=== PATIENT | female | born 2005 | race Two or more races ===

== ENCOUNTER 2025-03-02 23:58 | Inpatient (IN) ==
[2025-03-03] MEDS: KETOROLAC 30 MG/ML VIAL IV STA (00:41)
[2025-03-03] MEDS: SODIUM CHLORIDE 0.9% 1,000 ML IV ONE ×2 (00:41→03:44)
[2025-03-03] MEDS: ACETAMINOPHEN 1,000 MG/100 ML VIAL IV STA (00:41)
[2025-03-03 01:03] LABS: Basophils # (auto) 0.03 K/uL (0.00-0.20); Basophils % (auto) 0.5 %; Eosinophils # (auto) 0.01 K/uL (0.00-0.50); Eosinophils % (auto) 0.2 %; Hematocrit (blood only) 44.7 % (37.0-47.0); Hemoglobin 15.3 g/dl (12.0-16.0); Immature Granulocytes # (auto) 0.03 K/uL (0.01-0.20); Immature Granulocytes % (auto) 0.5 %; Lymphocytes # (auto) 0.96 K/uL (1.20-3.40); Lymphocytes % (auto) 16.2 %; Mean Corpuscular Hemoglobin 28.3 pg (25.0-34.0); Mean Corpuscular Hgb Conc 34.2 g/dL (32.0-36.0); Mean Corpuscular Volume 82.8 fL (80.0-100.0); Mean Platelet Volume 9.4 fL (9.4-12.4); Monocytes # (auto) 0.36 K/uL (0.11-0.59); Monocytes % (auto) 6.1 %; Neutrophils # (auto) 4.54 K/uL (1.40-6.50); Neutrophils % (auto) 76.5 %; Platelet Count 241 K/uL (130-400); RDW Coefficient of Variation 12.4 % (11.5-14.5); RDW Standard Deviation 37.7 fL (36.4-46.3); White Blood Count 5.93 K/ul (4.8-10.8)
[2025-03-03 01:17] LABS: Appearance Urine Clear (Clear); Bacteria Urine Automated 1+ (None Seen); Bilirubin Urine Negative (Negative); Blood Urine Trace (Negative); Cast Urine Automated 0-2 /lpf (0-2); Color Urine Yellow; Glucose Urine UA Negative (Negative); Ketones Urine 1+ (Negative); Leukocyte Esterase Urine 2+ (Negative); Nitrite Urine Negative (Negative); Protein Urine 1+ (Negative); Specific Gravity Urine 1.024 (1.000-1.030); Urobilinogen Urine Negative (Negative); WBC Urine Automated 21-50 /hpf (0-5)
[2025-03-03 01:20] LABS: Albumin Globulin Ratio 1.4 (0.9-2); Albumin Level 5.1 gm/dl (3.4-5.0); BUN Creatinine Ratio 14.3 (10-20); Bilirubin,Total 0.5 mg/dl (0.2-1.0); Calcium 9.9 mg/dl (8.6-10.3); Creatinine Clr Calc Pharmacy 101.4 ml/min; Globulin 3.6 gm/dl (2.5-4.0); Potassium 3.6 mmol/L (3.5-5.1); Total Protein 8.7 gm/dl (6.0-8.3)
[2025-03-03 01:24] LABS: Pregnancy Test, Serum Negative (Negative)
[2025-03-03] MEDS: OPTIRAY 320 100ml IV ONE (01:28)
--- NOTE | 2025-03-03 02:59 | CT Scan Report ---
EXAM: CT abd pelvis IV con only CLINICAL HISTORY: right flank pain, fever TECHNIQUE: Contiguous axial images were obtained from the level of the diaphragm to the pubic symphysis with intravenous contrast. Coronal and sagittal reconstructions were likewise performed and indicated to increase the sensitivity for detecting clinically relevant pathology. If IV contrast material had not been administered, the likelihood of detecting abnormalities relevant to the patient's condition would have been substantially decreased. CT scan was performed according to ALARA (as low as reasonable achievable). COMPARISON: None FINDINGS: The visualized lung bases are clear. The liver is normal in size and attenuation. No focal liver lesions are seen. There is no intra or extrahepatic biliary ductal dilatation. Hepatic vasculature is patent. The gallbladder is present. The spleen, pancreas, and adrenal glands are unremarkable. The kidneys are normal in size and attenuation. There is no hydronephrosis or perinephric fat stranding. Approximately 19 x 15 mm size poorly enhancing hypodense lesion measuring about 19 x 15 mm is noted involving interpolar cortex of right kidney with subtle adjacent fat stranding - suggest possibility of developing abscess. The ureters are normal in caliber and no ureteral calculi are seen. The bladder is normal in contour. Pelvic viscera are unremarkable. No focal or diffuse bowel wall thickening or evidence of bowel obstruction is identified. The appendix is visualized in the right lower quadrant and appears within normal limits. Abdominal and pelvic vasculature is patent. No adenopathy or fluid collections are seen. No aggressive appearing osseous lesions are identified. IMPRESSION: Approximately 19 x 15 mm size poorly enhancing hypodense lesion measuring about 19 x 15 mm is noted involving interpolar cortex of right kidney with subtle adjacent fat stranding - suggest possibility of developing abscess. Electronically signed by Andrae Rodriguez 03-03-2025 02:59 AM
[2025-03-03] MEDS ORDERED: VANCOMYCIN CONSULT ACTIVE PRN ×2 (03:08→05:35)
--- NOTE | 2025-03-03 03:25 | Emergency Department Note ---
History of Present Illness General Chief complaint: Flank Pain Stated complaint: FEVER,FLANK PAIN Time Seen by Provider: 03/03/25 00:04 History of Present Illness Maximum Pain Intensity: 0 This is a 19-year-old female presenting to the emergency department for evaluation of right flank pain worsening over the past 3 to 4 days. Patient has fever and urinary frequency. She does not have history of kidney stones. She has been taking Tylenol with some improvement of symptoms. She denies chance of . No history of abdominal surgery. No chest pain, chest tightness, or shortness of breath. She does not identify aggravating or alleviating factors. Pain is constant, not colicky, and does not seem to radiate. Home Medications Medication Instructions Recorded Confirmed Type acetaminophen 500 mg tablet 500 mg PO Q6H PRN PAIN/FEVER 03/03/25 03/03/25 History Allergies Allergy/AdvReac Type Severity Reaction Status Date / Time No Known Allergies Allergy Verified 03/03/25 00:41 Past Med/Surg History Problem List (Updated 03/03/25 @ 05:45 by Tomas Meyer PA-C) Renal abscess, right (Acute) Pyelonephritis (Acute) No significant past medical history Surgical History No history of previous surgery Social History Smoking Status: Never smoker Preferred Language: Guyanese Feels Safe at Home: Yes Review of Systems A total of 10 systems reviewed and were otherwise negative Physical Exam Vital Signs Vital Signs - 24 hr 03/03/25 00:01 03/03/25 00:35 03/03/25 01:01 Temperature 38.5 C H Temperature Source Oral Pulse Rate 147 H 113 H Pulse Rate [Apical] 125 H Pulse Rate from SpO2 Sensor Pulse Rhythm [Apical] Regular Respiratory Rate 18 19 Respiratory Effort / Characteristics Non-Labored Spontaneous Non-Labored Spontaneous Respiratory Depth Normal Normal Respiratory Pattern Regular Regular Blood Pressure 120/90 Blood Pressure [Left Arm] 107/78 Blood Pressure Mean 100 Blood Pressure Mean [Left Arm] 87 Blood Pressure Position Sitting Pulse Oximetry 99 97 Oxygen Delivery Method Room Air Room Air Sepsis Recent Fever Within 48 Hours Yes Sepsis New/Unexplained Change in Mental Status N/A Sepsis Action Taken by Nursing No Action Required 03/03/25 01:35 03/03/25 01:42 03/03/25 02:00 Temperature Temperature Source Pulse Rate 89 89 Pulse Rate [Apical] 85 Pulse Rate from SpO2 Sensor 90 90 Pulse Rhythm [Apical] Regular Respiratory Rate 17 16 15 Respiratory Effort / Characteristics Non-Labored Spontaneous Respiratory Depth Normal Respiratory Pattern Regular Blood Pressure 99/62 L Blood Pressure [Left Arm] 92/59 L Blood Pressure Mean 67 Blood Pressure Mean [Left Arm] 70 Blood Pressure Position Pulse Oximetry 98 98 96 Oxygen Delivery Method Room Air Room Air Room Air Sepsis Recent Fever Within 48 Hours Sepsis New/Unexplained Change in Mental Status Sepsis Action Taken by Nursing 03/03/25 02:06 03/03/25 02:30 03/03/25 02:45 Temperature Temperature Source Pulse Rate 74 71 Pulse Rate [Apical] 95 H Pulse Rate from SpO2 Sensor 73 71 Pulse Rhythm [Apical] Regular Respiratory Rate 18 17 17 Respiratory Effort / Characteristics Non-Labored Spontaneous Respiratory Depth Normal Respiratory Pattern Regular Blood Pressure 87/53 L 86/61 L Blood Pressure [Left Arm] 93/61 L Blood Pressure Mean 64 69 Blood Pressure Mean [Left Arm] 71 Blood Pressure Position Pulse Oximetry 98 96 96 Oxygen Delivery Method Room Air Room Air Room Air Sepsis Recent Fever Within 48 Hours Sepsis New/Unexplained Change in Mental Status Sepsis Action Taken by Nursing 03/03/25 03:00 03/03/25 03:30 Temperature Temperature Source Pulse Rate 70 68 Pulse Rate [Apical] Pulse Rate from SpO2 Sensor 70 Pulse Rhythm [Apical] Respiratory Rate 16 16 Respiratory Effort / Characteristics Respiratory Depth Respiratory Pattern Blood Pressure 93/59 L 92/55 L Blood Pressure [Left Arm] Blood Pressure Mean 69 67 Blood Pressure Mean [Left Arm] Blood Pressure Position Pulse Oximetry 96 99 Oxygen Delivery Method Room Air Room Air Sepsis Recent Fever Within 48 Hours Sepsis New/Unexplained Change in Mental Status Sepsis Action Taken by Nursing VITALS: Vitals are noted on the nurse's note and reviewed by myself. Vital signs with fever and tachycardia GENERAL: Well-developed, well-nourished, white female who appears ill but not toxic. NECK: Supple without nuchal rigidity. No lymphadenopathy. No thyromegaly. Cervical spine is nontender. HEART: Tachycardic rate with regular rhythm LUNGS: Clear to auscultation bilaterally without wheezes, rales or rhonchi. No retractions or accessory muscle use. ABDOMEN: Positive normal bowel sounds x 4. Soft, nontender, without masses or organomegaly. No guarding or rebound tenderness. Positive right CVA tenderness. MUSCULOSKELETAL: No muscle atrophy, erythema, or edema noted. Full range of motion in all extremities. No tenderness to palpation. Normal gait. Strength 5/5 throughout. NEURO: Patient was alert and oriented to person place and time. CN II through XII grossly intact. Course Administered Medications Vancomycin HCl 1,000 mg/ (Sodium Chloride) 520 mls @ 200 mls/hr IV NOW ONE Stop: 03/03/25 05:43 Last Admin: 03/03/25 04:45 Dose: 200 mls/hr Documented By: YONATAN Discontinued Medications Sodium Chloride (Nss) 1,000 mls @ 999 mls/hr IV .Q1H1M ONE Stop: 03/03/25 01:13 Last Infusion: 03/03/25 01:25 Dose: Infused Documented By: Admin: 03/03/25 00:41 Dose: 999 mls/hr Documented By: YONATAN Acetaminophen (Ofirmev) 1,000 mg in 100 mls @ 400 mls/hr IV NOW STA Stop: 03/03/25 00:27 Last Infusion: 03/03/25 01:00 Dose: Infused Documented By: Admin: 03/03/25 00:41 Dose: 400 mls/hr Documented By: YONATAN Piperacillin Sod/Tazobactam Sod (Zosyn) 4.5 gm in 100 mls @ 200 mls/hr IV NOW ONE; Protocol Stop: 03/03/25 03:37 Last Infusion: 03/03/25 04:42 Dose: Infused Documented By: Admin: 03/03/25 04:12 Dose: 200 mls/hr Documented By: YONATAN Sodium Chloride (Nss) 1,000 mls @ 999 mls/hr IV .Q1H1M ONE Stop: 03/03/25 04:10 Last Admin: 03/03/25 03:44 Dose: 999 mls/hr Documented By: YONATAN Ioversol (Optiray 320 100ml) 100 ml IV ONCE ONE Stop: 03/03/25 01:29 Last Admin: 03/03/25 01:28 Dose: 93 ml Documented By: LAYLA Ketorolac Tromethamine (Ketorolac 30 Mg/Ml Vial) 30 mg IV NOW STA Stop: 03/03/25 00:14 Last Admin: 03/03/25 00:41 Dose: 30 mg Documented By: YONATAN Medical Decision Making Differential Diagnosis Differential diagnosis: Etiologies such as shingles, pyelonephritis/UTI, renal colic, appendicitis, diverticulitis, mesenteric ischemia, torsion, aortic pathology, infections, inflammatory bowel disease, bowel obstruction, PUD, biliary pathology, as well as others were entertained. Laboratory Data 03/03/25 00:15 03/03/25 00:15 Lab Results 03/03/25 03/03/25 03/03/25 Range/Units 00:15 00:40 03:43 WBC 5.93 (4.8-10.8) K/ul RBC 5.40 (4.20-5.40) M/uL Hgb 15.3 (12.0-16.0) g/dl Hct 44.7 (37.0-47.0) % MCV 82.8 (80.0-100.0) fL MCH 28.3 (25.0-34.0) pg MCHC 34.2 (32.0-36.0) g/dL RDW Std Deviation 37.7 (36.4-46.3) fL RDW Coeff of Camilo 12.4 (11.5-14.5) % Plt Count 241 (130-400) K/uL MPV 9.4 (9.4-12.4) fL Immature Gran % (Auto) 0.5 % Neut % (Auto) 76.5 % Lymph % (Auto) 16.2 % Valley % (Auto) 6.1 % Eos % (Auto) 0.2 % Baso % (Auto) 0.5 % Neut # (Auto) 4.54 (1.40-6.50) K/uL Lymph # (Auto) 0.96 L (1.20-3.40) K/uL Valley # (Auto) 0.36 (0.11-0.59) K/uL Eos # (Auto) 0.01 (0.00-0.50) K/uL Baso # (Auto) 0.03 (0.00-0.20) K/uL Immature Gran # (Auto) 0.03 (0.01-0.20) K/uL ESR 37 H (0-20) mm/hr Sodium 135 L (136-145) mmol/L Potassium 3.6 (3.5-5.1) mmol/L Chloride 99 (98-107) mmol/L Carbon Dioxide 28 (21-32) mmol/L Anion Gap 8 (3-11) BUN 10 (6-23) mg/dl Creatinine 0.70 (0.6-1.2) mg/dl Est Cr Clr Drug Dosing 101.4 ml/min eGFR 126.90 BUN/Creatinine Ratio 14.3 (10-20) Glucose 105 H (70-99(Fasting)) mg/dl Lactate 0.6 (0.4-2.0) mmol/L Calcium 9.9 (8.6-10.3) mg/dl Total Bilirubin 0.5 (0.2-1.0) mg/dl AST 19 (13-39) U/L ALT 11 (7-52) U/L Alkaline Phosphatase 52 (34-104) U/L C-Reactive Protein 6.55 H (0-0.5) mg/dl Total Protein 8.7 H (6.0-8.3) gm/dl Albumin 5.1 H (3.4-5.0) gm/dl Globulin 3.6 (2.5-4.0) gm/dl Albumin/Globulin Ratio 1.4 (0.9-2) Lipase 6 L (11-82) U/L HCG, Qual Negative (Negative) Urine Color Yellow Urine Appearance Clear (Clear) Urine pH 6.0 (4.5-7.5) Ur Specific [place] 1.024 (1.000-1.030) Urine Protein 1+ H (Negative) Urine Glucose (UA) Negative (Negative) Urine Ketones 1+ H (Negative) Urine Blood Trace H (Negative) Urine Nitrite Negative (Negative) Urine Bilirubin Negative (Negative) Urine Urobilinogen Negative (Negative) Ur Leukocyte Esterase 2+ H (Negative) Urine WBC (Auto) 21-50 H (0-5) /hpf Urine RBC (Auto) 3-5 H (0-2) /hpf U Hyaline Cast (Auto) 0-2 (0-2) /lpf U Epithel Cells (Auto) 3-5 H (0-2) /hpf Urine Bacteria (Auto) 1+ H (None Seen) Imaging Data Radiologist's Impression: Abdomen/Pelvis CT 03/03/25 00:13 EXAM: CT abd pelvis IV con only CLINICAL HISTORY: right flank pain, fever TECHNIQUE: Contiguous axial images were obtained from the level of the diaphragm to the pubic symphysis with intravenous contrast. Coronal and sagittal reconstructions were likewise performed and indicated to increase the sensitivity for detecting clinically relevant pathology. If IV contrast material had not been administered, the likelihood of detecting abnormalities relevant to the patient's condition would have been substantially decreased. CT scan was performed according to ALARA (as low as reasonable achievable). COMPARISON: None FINDINGS: The visualized lung bases are clear. The liver is normal in size and attenuation. No focal liver lesions are seen. There is no intra or extrahepatic biliary ductal dilatation. Hepatic vasculature is patent. The gallbladder is present. The spleen, pancreas, and adrenal glands are unremarkable. The kidneys are normal in size and attenuation. There is no hydronephrosis or perinephric fat stranding. Approximately 19 x 15 mm size poorly enhancing hypodense lesion measuring about 19 x 15 mm is noted involving interpolar cortex of right kidney with subtle adjacent fat stranding - suggest possibility of developing abscess. The ureters are normal in caliber and no ureteral calculi are seen. The bladder is normal in contour. Pelvic viscera are unremarkable. No focal or diffuse bowel wall thickening or evidence of bowel obstruction is identified. The appendix is visualized in the right lower quadrant and appears within normal limits. Abdominal and pelvic vasculature is patent. No adenopathy or fluid collections are seen. No aggressive appearing osseous lesions are identified. IMPRESSION: Approximately 19 x 15 mm size poorly enhancing hypodense lesion measuring about 19 x 15 mm is noted involving interpolar cortex of right kidney with subtle adjacent fat stranding - suggest possibility of developing abscess. Electronically signed by Andrae Rodriguez 03-03-2025 02:59 AM MDM Narrative Physical exam and history were performed. Nursing notes, EMR, and Medication List were personally reviewed. No social concerns were identified as barriers to patients care. History was provided by the Patient. Patient appears to have right flank pain bringing her to the ER. She is febrile on arrival. IV access was established and labs were obtained. Patient was hydrated normal saline and given IV Toradol and IV Tylenol for comfort. She was sent to CT scan for imaging of her abdomen and pelvis. Patient's blood work is as above and was reviewed. She does not have a significant elevated white blood cell count, gross anemia, bandemia, or significant electrolyte imbalance. Lipase and transaminases are not diagnostic. She is not . Urine is with blood, esterase, and bacteria with culture pending. CT scan was reviewed by myself and radiology. CT scan is concerning for a right-sided pyelonephritis as well as the possibility of an evolving renal abscess. This would correlate with her symptoms. Escalation of care was considered, and is felt to be necessary for this patient. She was started on IV vancomycin and IV Zosyn here in the ER. Blood cultures and lactic were gathered. She was given additional IV fluids to complete her sepsis fluid bolus. Case was discussed with my attending physician, Dr. Figueredo. Case was also discussed with the on-call hospitalist team, who agreed to evaluate the patient here in the ER. Please see their dictation for further patient course, plan, and disposition. The chart was completed utilizing [employer] Speech Voice Recognition Software. Grammatical errors, random word insertions, pronoun errors, and incomplete sentences are an occasional consequence of this system due to software limitations, ambient noise, and hardware issues. Any formal questions or concerns about the content, text, or information contained within the body of this dictation should be directly addressed to the provider for clarification. Impression & Plan Pyelonephritis, Renal abscess, right Discharge Plan Visit Data Chief Complaint: Flank Pain Stated Complaint: FEVER,FLANK PAIN ED Provider: Angela Figueredo ED Midlevel Provider: Tomas Meyer Discharge Problem: Pyelonephritis, Renal abscess, right Patient Disposition: Admitted As Inpatient Discharge Instructions Interventions: ED Discharge Assessment Last Done: 03/03/25 05:14
--- NOTE | 2025-03-03 03:43 | History & Physical Report ---
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 She does not have any history of renal calculi or UTI. Patient has tried to utilize Tylenol to help alleviate the pain with minimal imp rovement. ED evaluation reveals no leukocytosis, stable H&H; CMP sodium 135, glucose 105, protein 8.7, albumin 5.1; lipase 6; UA positive for infection; CTAP reveals approximately 19 x 17 mm size poorly enhancing hypodense lesion involving interpolar cortex R kidney with subtle adjacent fat stranding suggesting possibility of a developing abscess.; Provided with vancomycin, Zosyn, ketorolac, acetaminophen, and 2L NSS in ED. #Pyelonephritis/Abscess Worsening R flank pain with associated fever and urinary frequency x 5 days CORE MAN. ? abscess forming. - CBC without leukocytosis; CMP grossly WNL creatinine 0.7 and BUN 10 - CBC, BMP am - ESR, CRP pending - trend to gauge response to treatment - U/A positive for infection; pending urine culture - CTAP fat stranding suggesting possibility of developing abscess (19 x 17 mm hypodense lesion involving interpolar cortex R kidney) - NSS @ 80 mL/hr - Acetaminophen prn fever/ pain, Ketorolac prn pain (severe) - Zofran prn N/V - Vancomycin q12h + Zosyn q8h IV - deescalate antibiotics as appropriate - Nephrology consulted - appreciate assistance + recs Dispo: Admit, med/sx VTE prophylaxis: Encourage ambulation - consider chemical if prolonged stay This document was dictated utilizing [employer]. Please excuse any grammatical errors that may be secondary to use of this software. 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 Patient has been experiencing flank pain on her right side with associated fever that has continued to worsen over the past 2 days CORE MAN. Describes it as a sharp pain that comes and goes, sometimes radiating to her abdomen but mainly in the flank area on the R side. She does not have any history of renal calculi or UTI. States that she had an episode like this occur "1 year ago" and that it resolved on its own. Did have a "severe fever" 1 day CORE MAN. Patient has tried to utilize cranberry juisce and Tylenol to help alleviate the symptoms with minimal improvement. Previously experienced dysuria, but not currently. ED evaluation reveals no leukocytosis, stable H&H; CMP sodium 135, glucose 105, protein 8.7, albumin 5.1; lipase 6; UA positive for infection; CTAP reveals approximately 19 x 17 mm size poorly enhancing hypodense lesion involving interpolar cortex R kidney with subtle adjacent fat stranding suggesting possibility of a developing abscess.; Provided with vancomycin, Zosyn, ketorolac, acetaminophen, and 2L NSS in ED. Please see Dr. Navarro's attestation for adjustments/additions to treatment plan. Allergies Allergy/AdvReac Type Severity Reaction Status Date / Time No Known Allergies Allergy Verified 03/03/25 00:41 Home Medications Medication Instructions Recorded Confirmed Type acetaminophen 500 mg tablet 500 mg PO Q6H PRN PAIN/FEVER 03/03/25 03/03/25 History Past Med/Surg History Problem List Renal abscess, right (Acute) Pyelonephritis (Acute) No significant past medical history Surgical History No history of previous surgery Social History Smoking Status: Never smoker Second Hand Exposure: No; Do You Dip or Chew Tobacco: No; Tobacco Cessation Education Requested by Patient: No Hx Alcohol Use: No Hx Substance Use: No Preferred Language: Kinyarwanda Communication Ability: Effective 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 Other Information That Helps Us Care for You: No Feels Safe at Home: Yes Safety Concerns: Feels Safe At This Time Assistive Devices: None Review of Systems Review of Systems: All systems reviewed & are unremarkable except as noted in Subjective Physical Exam Physical Exam: General: No acute distress, resting comfortably in bed Skin: Warm and dry Head: Normocephalic, atraumatic Eyes: PERRL, conjunctivae clear, sclera non-icteric ENT: External ear and ear canal without swelling; nose atraumatic; good dentition, tongue normal appearance, pharynx normal Neck: Supple, no LAD Cardio: RRR, no M/G/R, S1 and S2 normal Resp: No respiratory distress, Lungs CTA in all lobes bilaterally, no wheezes, rales, or rhonchi Abdomen: Soft, symmetric, nontender; No masses or hepatosplenomegaly; Bowel sounds normoactive; mild CVA tenderness R side, no CVA tenderness L side MSK: No deformities; pulses palpable and equal; no edema. Neuro: Awake, alert; Sensation intact bilaterally; CN grossly intact Psych: Appropriate mood and affect; good judgement and insight. Results & Data Results & Data Vital Signs (Past 12 Hours) Vital Signs Temp Pulse Pulse Resp BP BP Pulse Ox 03/03/25 02:06 95 H 18 93/61 L 98 03/03/25 02:00 85 15 92/59 L 96 03/03/25 01:42 89 16 98 03/03/25 01:35 89 17 99/62 L 98 03/03/25 01:01 113 H 03/03/25 00:35 125 H 19 107/78 97 03/03/25 00:01 38.5 C H 147 H 18 120/90 99 O2 Del Method 03/03/25 02:06 Room Air 03/03/25 02:00 Room Air 03/03/25 01:42 Room Air 03/03/25 01:35 Room Air 03/03/25 01:01 03/03/25 00:35 Room Air 03/03/25 00:01 Room Air Laboratory Results 03/03/25 00:40 Urine Culture - Pending Urine,Clean Catch 03/03/25 03/03/25 00:40 00:15 WBC 5.93 RBC 5.40 Hgb 15.3 Hct 44.7 MCV 82.8 MCH 28.3 MCHC 34.2 RDW Std Deviation 37.7 RDW Coeff of Camilo 12.4 Plt Count 241 MPV 9.4 Immature Gran % (Auto) 0.5 Neut % (Auto) 76.5 Lymph % (Auto) 16.2 [place] % (Auto) 6.1 Eos % (Auto) 0.2 Baso % (Auto) 0.5 Neut # (Auto) 4.54 Lymph # (Auto) 0.96 L [place] # (Auto) 0.36 Eos # (Auto) 0.01 Baso # (Auto) 0.03 Immature Gran # (Auto) 0.03 Sodium 135 L Potassium 3.6 Chloride 99 Carbon Dioxide 28 Anion Gap 8 BUN 10 Creatinine 0.70 Est Cr Clr Drug Dosing 101.4 eGFR 126.90 BUN/Creatinine Ratio 14.3 Glucose 105 H Calcium 9.9 Total Bilirubin 0.5 AST 19 ALT 11 Alkaline Phosphatase 52 Total Protein 8.7 H Albumin 5.1 H Globulin 3.6 Albumin/Globulin Ratio 1.4 Lipase 6 L HCG, Qual Negative Urine Color Yellow Urine Appearance Clear Urine pH 6.0 Ur Specific [place] 1.024 Urine Protein 1+ H Urine Glucose (UA) Negative Urine Ketones 1+ H Urine Blood Trace H Urine Nitrite Negative Urine Bilirubin Negative Urine Urobilinogen Negative Ur Leukocyte Esterase 2+ H Urine WBC (Auto) 21-50 H Urine RBC (Auto) 3-5 H U Hyaline Cast (Auto) 0-2 U Epithel Cells (Auto) 3-5 H Urine Bacteria (Auto) 1+ H Diagnostic Findings Abdomen/Pelvis CT 03/03/25 00:13 EXAM: CT abd pelvis IV con only CLINICAL HISTORY: right flank pain, fever TECHNIQUE: Contiguous axial images were obtained from the level of the diaphragm to the pubic symphysis with intravenous contrast. Coronal and sagittal reconstructions were likewise performed and indicated to increase the sensitivity for detecting clinically relevant pathology. If IV contrast material had not been administered, the likelihood of detecting abnormalities relevant to the patient's condition would have been substantially decreased. CT scan was performed according to ALARA (as low as reasonable achievable). COMPARISON: None FINDINGS: The visualized lung bases are clear. The liver is normal in size and attenuation. No focal liver lesions are seen. There is no intra or extrahepatic biliary ductal dilatation. Hepatic vasculature is patent. The gallbladder is present. The spleen, pancreas, and adrenal glands are unremarkable. The kidneys are normal in size and attenuation. There is no hydronephrosis or perinephric fat stranding. Approximately 19 x 15 mm size poorly enhancing hypodense lesion measuring about 19 x 15 mm is noted involving interpolar cortex of right kidney with subtle adjacent fat stranding - suggest possibility of developing abscess. The ureters are normal in caliber and no ureteral calculi are seen. The bladder is normal in contour. Pelvic viscera are unremarkable. No focal or diffuse bowel wall thickening or evidence of bowel obstruction is identified. The appendix is visualized in the right lower quadrant and appears within normal limits. Abdominal and pelvic vasculature is patent. No adenopathy or fluid collections are seen. No aggressive appearing osseous lesions are identified. IMPRESSION: Approximately 19 x 15 mm size poorly enhancing hypodense lesion measuring about 19 x 15 mm is noted involving interpolar cortex of right kidney with subtle adjacent fat stranding - suggest possibility of developing abscess. Electronically signed by Andrae Rodriguez 03-03-2025 02:59 AM Medications Administered 2L NSS Zosyn 4.5 g IV Vancomycin 1 g IV Ketorolac 30 Mg IV Acetaminophen 1 g IV Code Status & VTE Plan Code Status Full Supervising Physician Co-Signing Physician Notes Patient seen and examined in room 358-1, chart reviewed, case discussed with BEULAH Johnson and I agree with the assessment and plan as above Patient with pyelonephritis, concern for developing perinephric abscess Exam is unremarkable. Non-toxic IV antibiotics, fluids, supportive care Remainder as above PG Care Time/CCT Total # of Minutes Spent Total Time Spent with Patient: Total time spent is greater than 50% in coordination of care (as documented) at patient's floor/unit and/or counseling patient: Coding Level of Care Code 46297 INT INP/OBS CARE 2MIN Diagnoses Pyelonephritis N12 Renal abscess, right N15.1
[2025-03-03] MEDS ORDERED: KETOROLAC TROMETHAMINE 15 MG/ML VIAL IV PRN ×2 (04:03→13:59)
[2025-03-03] MEDS: PIPERACILLIN/TAZOBACTAM 4.5 GM/100 ML BAG IV ONE (04:12)
[2025-03-03 04:40] LABS: C Reactive Protein 6.55 mg/dl (0-0.5)
[2025-03-03] MEDS: VANCOMYCIN HCL 1,000 MG in SODIUM CHLORIDE 0.9% 500 ML IV ONE (04:45)
[2025-03-03] MEDS: SODIUM CHLORIDE 0.9% 1,000 ML IV SCH (04:55)
[2025-03-03] MEDS ORDERED: MELATONIN 3 MG TAB PO PRN (05:35)
[2025-03-03] MEDS ORDERED: ONDANSETRON INJ 2 MG/ML 2 ML VIAL IV PRN (05:35)
[2025-03-03] MEDS ORDERED: POLYETHYLENE (MIRALAX) 17 GM PACK PO PRN (05:35)
--- NOTE | 2025-03-03 07:35 | Pharmacy Report ---
Pharmacy PK ABX Note - Date of Service March 03, 2025 - Assessment and Plan Assessment 19 year old F receiving IV Vancomycin + Zosyn for treatment of possible pyelonephritis, questionable abscess forming. CBC without leukocytosis; fever 38.5 on admission, UA positive, awaiting urine + blood cultures. Day 1 of antimicrobial therapy. Plan Vancomycin * Loading dose: 1000 mg IV x 1 in ED * Maintenance dose: 1500 mg IV every 12 hours * Regimen is predicted to achieve target AUC/DEBORAH of 400-600 mg/L.hr * Random level ordered for: 03/05/25 with AM labs Zosyn 4.5g IV over 30 minutes then 4.5g IV Q8H extended interval infusion. Pharmacy will continue to follow and will adjust dose/frequency as necessary. Thank you. Pharmacy has transitioned to AUC monitoring for vancomycin. AUC/DEBORAH is the preferred PK/PD target and is associated with decreased risk of nephrotoxicity compared to traditional trough targets.
[2025-03-03] MEDS: LACTATED RINGER'S 1,000 ML IV SCH (08:59)
[2025-03-03] MEDS: LACTATED RINGER'S 500 ML IV ONE (09:15)
[2025-03-03] MEDS: PLASMA-LYTE A 500 ML IV ONE (09:22)
[2025-03-03] MEDS: VANCOMYCIN HCL 1,500 MG in SODIUM CHLORIDE 0.9% 500 ML IV SCH (09:31)
[2025-03-03] MEDS: PLASMA-LYTE A 1,000 ML IV SCH (09:31)
--- NOTE | 2025-03-03 10:43 | Nephrology Consultation ---
Date of Consultation March 03, 2025 Assessment & Plan (1) Pyelonephritis: Started on antibiotic therapy with Vancomycin and Zosyn. Cultures pending. Clinically improving. (2) Renal abscess, right: Creatinine stable. CT reviewed. No emergent indication for intervention/drainage . If concern arises, I would advise consultation with IR/urology. Continue broad spectrum antibiotics. IVF to encourage urine output. 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 She was experiencing fevers or chills as well as headaches prior to arrival. She reports significant improvement this AM. Jennifer was resting comfortably in bed this AM. She continues to endorse some right flank discomfort. She denies significant urinary symptoms. She has never required antibiotic therapy for UTI in the past. She has no history of kidney disease. Evaluation demonstrated evidence of pyelonephritis. CT demonstrating a 20 mm focus concerning for abscess in the right kidney. Creatinine normal. Cultures pending. She has been started on antibiotic therapy with vancomycin and Zosyn. 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 Other Information That Helps Us Care for You: No Feels Safe at Home: Yes Safety Concerns: Feels Safe At This Time Assistive Devices: Contacts and Glasses Review of Systems Review of Systems: All systems reviewed & are unremarkable except as noted in HPI & below Physical Exam Constitutional: well developed; no acute distress Eyes: no scleral abnormality and no corneal abnormality ENMT: Mouth: no oral mucosal abnormality and oral mucous membranes not dry Neck: normal visual inspection and trachea midline Respiratory: normal respiratory effort Auscultation: lungs clear to auscultation bilaterally Cardiovascular: Rate/Rhythm: regular rate Heart Sounds: normal S1 and normal S2 Extremities: no edema Gastrointestinal (Abdomen): Inspection/Auscultation: abdomen normal to inspection; abdomen not distended Percussion/Palpation: abdomen soft; abdomen nontender Musculoskeletal: Extremities: no cyanosis and no clubbing Skin: normal turgor; no lesions Neurologic: Motor/Sensory: no tremor and no asterixis Psychiatric: Orientation: alert and oriented x 3 Genitourinary: + CVA tenderness (R) Results & Data Vital Signs (Past 12 Hours) Vital Signs Temp Pulse Pulse Pulse Resp BP BP 03/03/25 07:34 90/50 L 03/03/25 07:22 36.4 C L 73 14 79/53 L 03/03/25 05:44 36.5 C 73 16 94/65 L 03/03/25 05:43 36.5 C 73 16 94/65 L 03/03/25 05:14 68 16 94/55 L 03/03/25 04:44 66 03/03/25 04:19 82 16 111/68 03/03/25 04:15 72 17 111/68 03/03/25 04:00 70 16 92/55 L 03/03/25 03:30 68 16 92/55 L 03/03/25 03:00 70 16 93/59 L 03/03/25 02:45 71 17 86/61 L 03/03/25 02:30 74 17 87/53 L 03/03/25 02:06 95 H 18 93/61 L 03/03/25 02:00 85 15 92/59 L 03/03/25 01:42 89 16 03/03/25 01:35 89 17 99/62 L 03/03/25 01:01 113 H 03/03/25 00:35 125 H 19 107/78 03/03/25 00:01 38.5 C H 147 H 18 120/90 Pulse Ox O2 Del Method 03/03/25 07:34 03/03/25 07:22 98 Room Air 03/03/25 05:44 98 Room Air 03/03/25 05:43 98 Room Air 03/03/25 05:14 99 Room Air 03/03/25 04:44 03/03/25 04:19 99 Room Air 03/03/25 04:15 98 Room Air 03/03/25 04:00 99 Room Air 03/03/25 03:30 99 Room Air 03/03/25 03:00 96 Room Air 03/03/25 02:45 96 Room Air 03/03/25 02:30 96 Room Air 03/03/25 02:06 98 Room Air 03/03/25 02:00 96 Room Air 03/03/25 01:42 98 Room Air 03/03/25 01:35 98 Room Air 03/03/25 01:01 03/03/25 00:35 97 Room Air 03/03/25 00:01 99 Room Air Laboratory Results Laboratory Results - last 24 hr 03/03/25 03/03/25 03/03/25 00:15 00:40 03:43 WBC 5.93 RBC 5.40 Hgb 15.3 Hct 44.7 MCV 82.8 MCH 28.3 MCHC 34.2 RDW Std Deviation 37.7 RDW Coeff of [place] 12.4 Plt Count 241 MPV 9.4 Immature Gran % (Auto) 0.5 Neut % (Auto) 76.5 Lymph % (Auto) 16.2 [place] % (Auto) 6.1 Eos % (Auto) 0.2 Baso % (Auto) 0.5 Neut # (Auto) 4.54 Lymph # (Auto) 0.96 L [place] # (Auto) 0.36 Eos # (Auto) 0.01 Baso # (Auto) 0.03 Immature Gran # (Auto) 0.03 ESR 37 H Sodium 135 L Potassium 3.6 Chloride 99 Carbon Dioxide 28 Anion Gap 8 BUN 10 Creatinine 0.70 Est Cr Clr Drug Dosing 101.4 eGFR 126.90 BUN/Creatinine Ratio 14.3 Glucose 105 H Lactate 0.6 Calcium 9.9 Total Bilirubin 0.5 AST 19 ALT 11 Alkaline Phosphatase 52 C-Reactive Protein 6.55 H Total Protein 8.7 H Albumin 5.1 H Globulin 3.6 Albumin/Globulin Ratio 1.4 Lipase 6 L HCG, Qual Negative Urine Color Yellow Urine Appearance Clear Urine pH 6.0 Ur Specific [place] 1.024 Urine Protein 1+ H Urine Glucose (UA) Negative Urine Ketones 1+ H Urine Blood Trace H Urine Nitrite Negative Urine Bilirubin Negative Urine Urobilinogen Negative Ur Leukocyte Esterase 2+ H Urine WBC (Auto) 21-50 H Urine RBC (Auto) 3-5 H U Hyaline Cast (Auto) 0-2 U Epithel Cells (Auto) 3-5 H Urine Bacteria (Auto) 1+ H Diagnostic Findings CT abd pelvis IV con only COMPARISON: None FINDINGS: The visualized lung bases are clear. The liver is normal in size and attenuation. No focal liver lesions are seen. There is no intra or extrahepatic biliary ductal dilatation. Hepatic vasculature is patent. The gallbladder is present. The spleen, pancreas, and adrenal glands are unremarkable. The kidneys are normal in size and attenuation. There is no hydronephrosis or perinephric fat stranding. Approximately 19 x 15 mm size poorly enhancing hypodense lesion measuring about 19 x 15 mm is noted involving interpolar cortex of right kidney with subtle adjacent fat stranding - suggest possibility of developing abscess. The ureters are normal in caliber and no ureteral calculi are seen. The bladder is normal in contour. Pelvic viscera are unremarkable. No focal or diffuse bowel wall thickening or evidence of bowel obstruction is identified. The appendix is visualized in the right lower quadrant and appears within normal limits. Abdominal and pelvic vasculature is patent. No adenopathy or fluid collections are seen. No aggressive appearing osseous lesions are identified. IMPRESSION: Approximately 19 x 15 mm size poorly enhancing hypodense lesion measuring about 19 x 15 mm is noted involving interpolar cortex of right kidney with subtle adjacent fat stranding - suggest possibility of developing abscess. PG Care Time/CCT Total # of Minutes Spent Total Time Spent with Patient: Total time spent is greater than 50% in coordination of care (as documented) at patient's floor/unit and/or counseling patient: Coding Level of Care Code 92944 IN/OBS CONSULT LVL 4,60M Diagnoses Pyelonephritis N12 Renal abscess, right N15.1
--- NOTE | 2025-03-03 10:53 | Hospitalist Progress Note ---
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 She does not have any history of renal calculi or UTI. Admitted for pyelo/renal abscess Pyelonephritis/renal abscess - p/w with right flank pain, urinary frequency, and fever No leukocytosis, hypotensive overnight. Received a little over 2 L of fluids. 56kg body weight - Tmax 38.5*F overnight On morning assessment clinically she feels improved and has no symptoms of hypotension. Blood pressures have been running low 90s/5060s. Her cap refill in fingertips is brisk, and she is not tachycardic. Does not show perfusion deficits at this time and is with MAP greater than 70 at time of provider assessment. Given low blood pressures will add additional fluid bolus and maintenance supplement. Lactate was not elevated on admission. Vasopressors not currently indicated - LR switched to plasmalyte due to IV compatibility. CTA/P concerning for 19 x 17 mm hypodense renal abscess. <5 cm, medical management is indicated Continue Tylenol for pain/fever Continue Zofran as needed for nausea/vomiting Blood cultures and urine cultures are pending. Reassuring clinical progression at bedside but given borderline pressures and abscess we will continue Zosyn/vancomycin at this time and narrow once cx available - Decrease toradol to 10mg q6h for maintenance dosing - Normotensive on afternoon reassessment Dispo: Admit, med/sx VTE prophylaxis: Ambulate Admission and Anticipated Discharge Date Admission Date: March 03, 2025 Belle Rodriguez is seen at the bedside shortly after sign on chart review due to relative hypotension. She is seen at bedside and awakens easily. She reports that she came in for some flank discomfort which has completely resolved this morning. She reports that she actually feels well, denies fever chills and sweats overnight. She has no lightheadedness or dizziness. She has no abdominal pain/nausea/vomiting. Discussed her relatively low blood pressures this morning, she reports that she had not been told these were low that she would feel otherwise normal and greatly improved from prior. BP was checked at bedside by provider 98/60. 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 NAD. Cooperative. HEENT: Atraumatic, normocephalic. Vision and hearing grossly intact Pulm: CTAB A&P. -wheezes, -rales, -rhonchi. Symmetrical chest rise. No increase in work of breathing. No respiratory distress. Cardiac: RRR, -mrg. Radial pulses intact and symmetrical. Abdomen: No pain at rest, continues to have some right CVA tenderness to percussion and on movement Results & Data Results & Data Vital Signs (Past 12 Hours) Vital Signs Temp Pulse Pulse Pulse Resp BP BP 03/03/25 07:34 90/50 L 03/03/25 07:22 36.4 C L 73 14 79/53 L 03/03/25 05:44 36.5 C 73 16 94/65 L 03/03/25 05:43 36.5 C 73 16 94/65 L 03/03/25 05:14 68 16 94/55 L 03/03/25 04:44 66 03/03/25 04:19 82 16 111/68 03/03/25 04:15 72 17 111/68 03/03/25 04:00 70 16 92/55 L 03/03/25 03:30 68 16 92/55 L 03/03/25 03:00 70 16 93/59 L 03/03/25 02:45 71 17 86/61 L 03/03/25 02:30 74 17 87/53 L 03/03/25 02:06 95 H 18 93/61 L 03/03/25 02:00 85 15 92/59 L 03/03/25 01:42 89 16 03/03/25 01:35 89 17 99/62 L 03/03/25 01:01 113 H 03/03/25 00:35 125 H 19 107/78 03/03/25 00:01 38.5 C H 147 H 18 120/90 Pulse Ox O2 Del Method 03/03/25 07:34 03/03/25 07:22 98 Room Air 03/03/25 05:44 98 Room Air 03/03/25 05:43 98 Room Air 03/03/25 05:14 99 Room Air 03/03/25 04:44 03/03/25 04:19 99 Room Air 03/03/25 04:15 98 Room Air 03/03/25 04:00 99 Room Air 03/03/25 03:30 99 Room Air 03/03/25 03:00 96 Room Air 03/03/25 02:45 96 Room Air 03/03/25 02:30 96 Room Air 03/03/25 02:06 98 Room Air 03/03/25 02:00 96 Room Air 03/03/25 01:42 98 Room Air 03/03/25 01:35 98 Room Air 03/03/25 01:01 03/03/25 00:35 97 Room Air 03/03/25 00:01 99 Room Air PG Care Time/CCT Total # of Minutes Spent Total Time Spent with Patient: Total time spent is greater than 50% in coordination of care (as documented) at patient's floor/unit and/or counseling patient: Coding Level of Care Code 66763 SUB INP/OBS CARE 3/50MIN Diagnoses Pyelonephritis N12 Renal abscess, right N15.1
[2025-03-03] MEDS: PIPERACILLIN/TAZOBACTAM 4.5 GM/100 ML BAG IV SCH (12:05)
[2025-03-03] MEDS: ACETAMINOPHEN 500 MG TAB PO PRN (14:00)
[2025-03-04] MEDS: IBUPROFEN 600 MG TAB PO STA (00:02)
[2025-03-04] MEDS: FAMOTIDINE 20 MG TAB PO STA (00:03)
[2025-03-04 09:02] LABS: Hematocrit (blood only) 33.6 % (37.0-47.0); Hemoglobin 11.2 g/dl (12.0-16.0); Mean Corpuscular Hemoglobin 27.9 pg (25.0-34.0); Mean Corpuscular Hgb Conc 33.3 g/dL (32.0-36.0); Mean Corpuscular Volume 83.6 fL (80.0-100.0); Mean Platelet Volume 9.5 fL (9.4-12.4); Platelet Count 169 K/uL (130-400); RDW Coefficient of Variation 12.9 % (11.5-14.5); RDW Standard Deviation 39.2 fL (36.4-46.3); Red Blood Count 4.02 M/uL (4.20-5.40); White Blood Count 4.36 K/ul (4.8-10.8)
[2025-03-04 09:25] LABS: BUN Creatinine Ratio 9.1 (10-20); Calcium 8.1 mg/dl (8.6-10.3); Creatinine Clr Calc Pharmacy 161.3 ml/min; Potassium 3.6 mmol/L (3.5-5.1)
--- NOTE | 2025-03-04 11:58 | Nephrology Progress Note ---
Date of Service March 04, 2025 Assessment & Plan (1) Pyelonephritis: Plan: Remains on Vancomycin and Zosyn. Blood cultures negative. Urine culture pending. No urinary symptoms. No WBC. Fevers overnight. I discussed the plan of care with Dr. Pedersen this AM. (2) Renal abscess, right: Plan: Creatinine stable. CT reviewed. Findings on CT suggest an evolving abscess in the interpolar cortex of the right kidney. Findings are atypical for renal infarct. I do not see an indication for emergent drainage. If concern arises, I would advise consultation with IR/urology. Follow up imaging for prospective monitoring is also advised. Continue broad spectrum antibiotics pending culture results. I will defer management to the hospitalist team. I have discussed with Dr. Pedersen. Kidney function is stable. No additional nephrology recommendations at this time. Please call with questions or concerns. Admission and Anticipated Discharge Date Admission Date: March 03, 2025 Subjective Jood is resting comfortably in bed this AM. She reports some fevers overnight (Tmax 39.5). No shaking chills but night sweats. She is feeling better this AM. Mild right flank discomfort persists but improving. Her primary symptom is discomfort in located in the abdomen. She is experiencing increased right upper quadrant abdominal discomfort. She describes fullness and tenderness in the epigastric area. She denies nausea. She is not experiencing vomiting, diarrhea or constipation. She does not have any urinary symptoms. Symptoms are relatively constant without exacerbating or remitting factors. Review of Systems Review of Systems: All systems reviewed & are unremarkable except as noted in HPI & below Physical Exam Constitutional: well developed; no acute distress Eyes: no scleral abnormality and no corneal abnormality ENMT: Mouth: no oral mucosal abnormality and oral mucous membranes not dry Neck: normal visual inspection and trachea midline Respiratory: normal respiratory effort Auscultation: lungs clear to auscultation bilaterally Cardiovascular: Rate/Rhythm: regular rate Heart Sounds: normal S1 and normal S2 Extremities: no edema Gastrointestinal (Abdomen): Inspection/Auscultation: normal bowel sounds; abdomen not distended Percussion/Palpation: + abdomen tender (right upper quadrant and epigastric area), + guarding and abdomen soft; abdomen not rigid Musculoskeletal: Extremities: no cyanosis and no clubbing Skin: normal turgor; no lesions Neurologic: Motor/Sensory: no tremor and no asterixis Psychiatric: Orientation: alert and oriented x 3 Genitourinary: + CVA tenderness (R - improving) Results & Data Vital Signs (Past 12 Hours) Vital Signs Temp Pulse Resp BP Pulse Ox O2 Del Method 03/04/25 07:33 36.5 C 70 16 101/62 97 Room Air 03/04/25 01:55 36.6 C 03/04/25 01:17 38.4 C H Laboratory Results Laboratory Results - last 24 hr 03/04/25 08:22 WBC 4.36 L RBC 4.02 L Hgb 11.2 L D Hct 33.6 L MCV 83.6 MCH 27.9 MCHC 33.3 RDW Std Deviation 39.2 RDW Coeff of Camilo 12.9 Plt Count 169 MPV 9.5 Sodium 138 Potassium 3.6 Chloride 106 Carbon Dioxide 29 Anion Gap 3 BUN 4 L Creatinine 0.44 L Est Cr Clr Drug Dosing 161.3 eGFR 141.92 BUN/Creatinine Ratio 9.1 L Glucose 103 H Calcium 8.1 L PG Care Time/CCT Total # of Minutes Spent Total Time Spent with Patient: Total time spent is greater than 50% in coordination of care (as documented) at patient's floor/unit and/or counseling patient: Coding Level of Care Code 33313 SUB INP/OBS CARE 3/50MIN Diagnoses Pyelonephritis N12 Renal abscess, right N15.1
--- NOTE | 2025-03-04 15:37 | Hospitalist Progress Note ---
Date of Service March 04, 2025 Assessment & Plan (1) Pyelonephritis: (2) Renal abscess, right: Plan 19-year-old female no significant PMHx presenting for R flank pain starting 5 days [employer]. Patient has been experiencing flank pain on her right side with associated fever and urinary frequency that has continued to worsen over the past 5 days [employer]. She does not have any history of renal calculi or UTI. Patient has tried to utilize Tylenol to help alleviate the pain with minimal imp rovement. #Pyelonephritis/Abscess Worsening R flank pain with associated fever and urinary frequency x 5 days [employer]. ? abscess forming. Febrile overnight w/ highest of 39.5C - CBC without leukocytosis; CMP grossly WNL creatinine 0.44 and BUN 4 - CBC, BMP am - CRP 6.55, repeat in AM - U/A positive for infection; UC + for E coli, sensitivities pending. - CTAP fat stranding suggesting possibility of developing abscess (19 x 17 mm hypodense lesion involving interpolar cortex R kidney) - s/p IVF - Acetaminophen prn fever/ pain, Ketorolac prn pain (severe) - Zofran prn N/V - Vancomycin q12h + Zosyn q8h IV - will de-escalate pending sensitivities. - Nephrology consulted - supportive care w/ abx --> if concern arises consult w/ IR vs urology. VTE prophylaxis: Encourage ambulation Anticipate discharge home 03/04 pending culture sensitivities Admission and Anticipated Discharge Date Admission Date: March 03, 2025 Subjective Patient seen and examined this morning. Patient reports that she is feeling okay today. Denies any urinary or vaginal symptoms. Denies any risks associated w/ STD's. Denies N/V/abdominal pain. Physical Exam Physical Exam: General: no acute distress; non-toxic appearing; well-nourished; cooperative HEENT: normocephalic, atraumatic; no scleral icterus; PERRLA w/ EOMs intact; vision and hearing grossly intact Skin: warm, dry without signs of tenting; no cyanosis; no rashes, bruising, lesions, or erythema noted CV: chest wall NTP; RRR; S1/S2 normal; no murmurs/rubs/gallops; pulses intact and symmetric at radial, DP, and PT Lungs: no acute respiratory distress; symmetrical chest wall expansion; clear breath sounds across all lung young w/o adventitious sounds; no wheezing ABD: Soft, NTP; BS present; no rebound/guarding; no distention MSK: no tics or fasciculations; no edema noted in the LEs b/l, nonerythematous Neuro: A&Ox3; normal mood and affect; fluent speech; no focal deficits; sensation grossly intact in the LEs b/l Results & Data Results & Data Vital Signs (Past 12 Hours) Vital Signs Temp Pulse Resp BP BP Pulse Ox O2 Del Method 03/04/25 14:27 36.6 C 60 15 100/69 99 Room Air 03/04/25 07:33 36.5 C 70 16 101/62 97 Room Air PG Care Time/CCT Total # of Minutes Spent Total Time Spent with Patient: Total time spent is greater than 50% in coordination of care (as documented) at patient's floor/unit and/or counseling patient: Coding Level of Care Code 12988 SUB INP/OBS CARE 2/35MIN Diagnoses Pyelonephritis N12 Renal abscess, right N15.1
[2025-03-04] MEDS: FAMOTIDINE 20 MG TAB PO ONE (21:17)
[2025-03-04] MEDS: IBUPROFEN 200 MG TAB PO STA (21:17)
[2025-03-05 05:20] LABS: Mean Corpuscular Hemoglobin 28.6 pg (25.0-34.0); Mean Corpuscular Hgb Conc 34.4 g/dL (32.0-36.0); Mean Corpuscular Volume 83.1 fL (80.0-100.0); Mean Platelet Volume 9.5 fL (9.4-12.4); Platelet Count 158 K/uL (130-400); RDW Coefficient of Variation 12.9 % (11.5-14.5); RDW Standard Deviation 39.2 fL (36.4-46.3); Red Blood Count 3.85 M/uL (4.20-5.40)
[2025-03-05 05:36] LABS: BUN Creatinine Ratio 9.4 (10-20); Calcium 8.6 mg/dl (8.6-10.3); Creatinine Clr Calc Pharmacy 133.9 ml/min; Potassium 3.8 mmol/L (3.5-5.1)
[2025-03-05 07:18] VITALS: BP 98/63; PULSE 55; RESP 16; TEMP 97.9; O2SAT 100
--- NOTE | 2025-03-05 10:02 | Discharge Summary ---
Discharge Summary Date of Service March 05, 2025 Principal Dx & Hospital Course #1 = Principal Diagnosis (1) Pyelonephritis: (2) Renal abscess, right: Plan 19-year-old female no significant PMHx presenting for R flank pain starting 5 days PRICER. Patient has been experiencing flank pain on her right side with associated fever and urinary frequency that has continued to worsen over the past 5 days PRICER. She does not have any history of renal calculi or UTI. Patient has tried to utilize Tylenol to help alleviate the pain with minimal improvement. #Pyelonephritis/Abscess Worsening R flank pain with associated fever and urinary frequency x 5 days PRICER. ? abscess forming. Afebrile x 24 hours CBC w/o leukocytosis, Stable renal function UA + for infx; UC + for pansensitive E. Coli CTAP w/ fat stranding suggestive of possibly developing abscess [id number] hypodensei lesion involving interpolar cortex R kidney. s/p IVF s/p Zosyn & Vancomycin --> transitioned to Cipro PO BID x 10 additional days on discharge. patient will need to follow up w/ PCP on d/c to repeat a CTAP to ensure resolution of abscess Nephro consulted - rec supportive care. Patient discharged home w/ excuse for class. Admission HPI Per Admitting Provider 19-year-old female no significant PMHx presenting for R flank pain starting 2 days PRICER. Patient has been experiencing flank pain on her right side with associated fever that has continued to worsen over the past 2 days PRICER. Describes it as a sharp pain that comes and goes, sometimes radiating to her abdomen but mainly in the flank area on the R side. She does not have any history of renal calculi or UTI. States that she had an episode like this occur "1 year ago" and that it resolved on its own. Did have a "severe fever" 1 day PRICER. Patient has tried to utilize cranberry juisce and Tylenol to help alleviate the symptoms with minimal improvement. Previously experienced dysuria, but not currently. ED evaluation reveals no leukocytosis, stable H&H; CMP sodium 135, glucose 105, protein 8.7, albumin 5.1; lipase 6; UA positive for infection; CTAP reveals approximately 19 x 17 mm size poorly enhancing hypodense lesion involving interpolar cortex R kidney with subtle adjacent fat stranding suggesting possibility of a developing abscess.; Provided with vancomycin, Zosyn, ketorolac, acetaminophen, and 2L NSS in ED. Please see Dr. Navarro's attestation for adjustments/additions to treatment plan. Discharge Exam General: no acute distress; non-toxic appearing; well-nourished; cooperative HEENT: normocephalic, atraumatic; no scleral icterus; PERRLA w/ EOMs intact; vision and hearing grossly intact Skin: warm, dry without signs of tenting; no cyanosis; no rashes, bruising, lesions, or erythema noted Lungs: no acute respiratory distress; symmetrical chest wall expansion Neuro: A&Ox3; normal mood and affect; fluent speech; no focal deficits; sensation grossly intact in the LEs b/l Discharge Plan Discharge Items Patient Disposition: Home - Self-Care Reason For Visit: PYELONEPHRIITIS, ABCESS Discharge Diagnosis: Pyelonephritis, Renal abscess Activity: Resume your previous activity Non-emergency contact: Primary Care Provider Call non-emergency contact if: you have any medication questions, your symptoms worsen and you have a fever Follow-up/Referrals: [facility] [Primary Care Provider] - Diet: Regular Addtl Attending Provider Instructions: Ms. Gary, You were recently hospitalized for flank pain, fever, and urinary symptoms. You were found to have pyelonephritis with the development of an abscess. Please see recommendations below regarding your discharge. 1. Please take Ciprofloxacin twice daily for the next 10 days. Your first dose at home will be this evening, 03/05. 2. Please take antibiotic with food and a probiotic to avoid GI upset. 3. Please follow up with your PCP in 1-2 weeks from discharge. - You will require a follow up CAT scan that will need to be scheduled to ensure the abscess has resolved. If you develop any worsening symptoms including severe flank pain, fever, chills please report back to the ER for further care. Sincerely, Court Ray PA-C Pending Studies at Discharge: No Stand-Alone Forms: My [employer], Work/School Release, Smoking Cessation Medications and DC Order Prescriptions: New ciprofloxacin HCl [Cipro] 500 mg tablet 500 mg PO BID Qty: 19 0RF Continued acetaminophen 500 mg Tablet 500 mg PO Q6H PRN (Reason: PAIN/FEVER) Discharge Orders: Discharge Order (Routine); Ordered 03/05/25 Ordered By: Court Quintanilla/Other Patient Handouts: Kidney Infec Dc Admission Data Admit Date/Time: 03/03/25 03:59 Attending Provider: Mikhail Dennis Admit Provider: Ramona Navarro Primary Care Provider: [facility] Other Providers: Ramona Navarro; Tigre Ahn Other Interventions: Discharge Summary Assessment (RN) Last Done: 03/05/25 10:16 Hospital Stay Data Consultations 03/03/25 03:22 ED Decision to Admit Stat 03/03/25 05:35 Consult Nephrology Routine Diagnostic Imagining Performed 03/03/25 00:13 CT abd pelvis IV con only Stat Pending Results Patient Have Any Pending Studies at Discharge: No Discharge Instructions Given to Patient (Per Discharging Provider) Ms. Gary, Elpidio were recently hospitalized for flank pain, fever, and urinary symptoms. You were found to have pyelonephritis with the development of an abscess. Please see recommendations below regarding your discharge. 1. Please take Ciprofloxacin twice daily for the next 10 days. Your first dose at home will be this evening, 03/05. 2. Please take antibiotic with food and a probiotic to avoid GI upset. 3. Please follow up with your PCP in 1-2 weeks from discharge. - You will require a follow up CAT scan that will need to be scheduled to ensure the abscess has resolved. If you develop any worsening symptoms including severe flank pain, fever, chills please report back to the ER for further care. Sincerely, Court Ray PA-C Total Time Total Time Spent Total Time Spent (In Minutes): 45 Total Time Includes: Examination of the Patient, Discharge Planning and Medication Reconciliation Coding Level of Care Code 12798 INP/OBS DISCH >30 MIN Diagnoses Pyelonephritis N12 Renal abscess, right N15.1
[2025-03-05] MEDS: CIPROFLOXACIN 500 MG TAB PO STA (10:24)
== END 2025-03-05 10:45 | disposition home or self-care (01) | DRG 690 ==
LOC: ED 23:58 → SUATTDRO 03-03 03:59 → 3W 03-03 03:59